=== PATIENT | female | born 1985 | race African-American/Black ===

== ENCOUNTER → 2017-06-11 | Outpatient (CLI) | payer OTHER ==
[2015-07-02 14:01] VITALS: BP 122/79
[~2017-06-11] MED LIST: ONDA4TAB7 PO; OXYC-323 PO
[2017-06-11 09:57] LABS: BASO # 0.1 x10^3/uL (0.0-0.2); BASO % 1 % (0-3); EOS % 2 % (0-3); HEMATOCRIT 39.5 % (36.0-47.0); HEMOGLOBIN 12.9 g/dL (12.0-15.5); LYMPH % 28 % (24-48); MEAN CORPUSCULAR HEMOGLOBIN 28 pg (25-35); MEAN CORPUSCULAR HGB CONC 33 g/dL (31-37); MEAN CORPUSCULAR VOLUME 85 fL (79-100); MONO % 9 % (0-9); NEUT % 60 % (31-73); PLATELET COUNT 242 x10^3/uL (140-400); RED BLOOD COUNT 4.64 x10^6/uL (3.50-5.40); RED CELL DISTRIBUTION WIDTH 14.2 % (11.5-14.5); WHITE BLOOD COUNT 7.2 x10^3/uL (4.0-11.0)
[2017-06-11 17:16] LABS: HEP B SURFACE ABDY Reactive (.); HIV ANTIBODY Non Reactive (Non Reactive)
[2017-06-12 07:27] LABS: RPR REFLEX Non Reactive (Non Reactive)
== END | disposition home or self-care (01) ==
LOC: LAB 09:33
PROVIDERS: ATTEND Obstetrics & Gynecology
DX: O34.219 Maternal care for unspecified type scar from previous cesarean delivery (principal); Z3A.00 Weeks of gestation of pregnancy not specified
CPT/HCPCS: 36415; 85025; 86593; 86701; 86702; 86703; 86706; 86762; 86900; 86901; 87340; 87341; 87535

== ENCOUNTER → 2017-08-27 | Outpatient (CLI) | payer OTHER | END | disposition home or self-care (01) | LOC: US 15:35 | DX: O09.92 Supervision of high risk pregnancy, unspecified, second trimester (principal); O26.842 Uterine size-date discrepancy, second trimester; Z3A.20 20 weeks gestation of pregnancy | CPT/HCPCS: 76805 ==

== ENCOUNTER → 2017-10-26 | Outpatient (CLI) | payer OTHER | END | disposition home or self-care (01) | LOC: US 10:04 | DX: O09.93 Supervision of high risk pregnancy, unspecified, third trimester (principal); O26.843 Uterine size-date discrepancy, third trimester; Z3A.29 29 weeks gestation of pregnancy | CPT/HCPCS: 76805 ==

== ENCOUNTER → 2019-05-24 | Outpatient (CLI) | payer OTHER ==
[2015-07-02 14:01] VITALS: BP 122/79
[~2019-05-24] MED LIST changes: -OXYC-323 PO; +OXYC1TAB15 PO
[2019-05-24 11:50] LABS: BASO # 0.1 x10^3/uL (0.0-0.2); BASO % 1 % (0-3); EOS # 0.1 x10^3/uL (0.0-0.7); EOS % 1 % (0-3); HEMATOCRIT 39.1 % (36.0-47.0); HEMOGLOBIN 13.2 g/dL (12.0-15.5); LYMPH # 2.2 x10^3/uL (1.0-4.8); LYMPH % 26 % (24-48); MEAN CORPUSCULAR HEMOGLOBIN 28 pg (25-35); MEAN CORPUSCULAR HGB CONC 34 g/dL (31-37); MEAN CORPUSCULAR VOLUME 84 fL (79-100); MONO # 0.5 x10^3/uL (0.0-1.1); MONO % 6 % (0-9); NEUT # 5.4 x10^3/uL (1.8-7.7); NEUT % 66 % (31-73); PLATELET COUNT 205 x10^3/uL (140-400); RED BLOOD COUNT 4.67 x10^6/uL (3.50-5.40); RED CELL DISTRIBUTION WIDTH 15.5 % (11.5-14.5); WHITE BLOOD COUNT 8.2 x10^3/uL (4.0-11.0)
== END | disposition home or self-care (01) ==
LOC: LAB 11:30
PROVIDERS: ATTEND Obstetrics & Gynecology
DX: Z32.01 Encounter for pregnancy test, result positive (principal); O34.219 Maternal care for unspecified type scar from previous cesarean delivery
CPT/HCPCS: 36415; 85025; 86592; 86703; 86762; 86850; 86900; 86901; 87340

== ENCOUNTER → 2019-08-10 | Outpatient (CLI) | payer OTHER ==
[2015-07-02 14:01] VITALS: BP 122/79
--- NOTE | 2019-08-10 18:20 | RAD ---
EXAM: Obstetric sonogram. HISTORY: Size and dates. TECHNIQUE: Sonographic imaging of a gravid uterus was performed. COMPARISON: None. FINDINGS: There is a single intrauterine fetus in breech presentation with a normal heart rate of 149 bpm. There is a three-vessel umbilical cord with normal insertion. There is an anterior placenta without evidence of placenta previa. The maternal adnexal regions are unremarkable. The cervix is closed and measures 4.0 cm in length. The amniotic fluid index is normal at 10.5 cm. The biparietal diameter is 4.6 cm, corresponding with 19 weeks and 6 days. The head circumference is 17.2 cm, corresponding with 19 weeks and 5 days. The abdominal circumference is 15.1 cm, corresponding with 20 weeks and 2 days. The femoral length is 3.7 cm, corresponding with 21 weeks and 6 days. The estimated gestational age based on combined ultrasound measurements is 20 weeks and 3 days and the estimated due date is 12/25/2019. The estimated weight is 382 g. Evaluation of the anatomy is slightly limited due to presentation. The facial profile, spine and extremities are not well seen. The stomach, kidneys, bladder, brain, and heart are unremarkable. IMPRESSION: 1. Single uterine fetus in breech presentation with normal heart rate and gestational age based on ultrasound measurements of 20 weeks and 3 days. 2. Suboptimal evaluation of the facial profile, spine and extremities due to presentation. The remainder the anatomy survey is unremarkable. Electronically signed by: Fani Jane MD (08/10/2019 5:01 PM) [id number]
== END | disposition home or self-care (01) ==
LOC: US 14:57
PROVIDERS: ATTEND Obstetrics & Gynecology
DX: O32.1XX0 Maternal care for breech presentation, not applicable or unspecified (principal); O26.842 Uterine size-date discrepancy, second trimester; Z3A.20 20 weeks gestation of pregnancy
CPT/HCPCS: 76805

== ENCOUNTER → 2019-10-27 | Outpatient (CLI) | payer OTHER ==
[2015-07-02 14:01] VITALS: BP 122/79
== END | disposition home or self-care (01) ==
LOC: LAB 09:55
PROVIDERS: ATTEND Obstetrics & Gynecology
DX: O09.93 Supervision of high risk pregnancy, unspecified, third trimester (principal); Z3A.31 31 weeks gestation of pregnancy
CPT/HCPCS: 36415; 82947; 82950